=== PATIENT | male | born 1970 | race Caucasian/White ===

== ENCOUNTER 2024-05-12 15:15 | Outpatient (CLI) | payer MEDICARE, SELFPAY | END 2024-05-12 15:16 | disposition home or self-care (01) | PROVIDERS: Visit Provider Family Medicine | DX: I10 Essential (primary) hypertension (principal); N40.1 Benign prostatic hyperplasia with lower urinary tract symptoms; R35.1 Nocturia; Z12.5 Encounter for screening for malignant neoplasm of prostate | CPT/HCPCS: 80053; G0103 ==

== ENCOUNTER 2024-07-01 13:39 | Outpatient (CLI) | payer MEDICARE, SELFPAY | END 2024-07-01 13:40 | disposition home or self-care (01) | LOC: LKVREF 13:40 | PROVIDERS: PCP Family Medicine; Visit Provider Emergency Medicine | DX: M25.561 Pain in right knee (principal); M25.562 Pain in left knee; Z87.39 Personal history of other diseases of the musculoskeletal system and connective tissue | CPT/HCPCS: 80048 ==

== ENCOUNTER 2024-07-17 12:33 | Outpatient (CLI) | payer MEDICARE, SELFPAY ==
[2024-07-17 17:39] LABS: Mononuclear WBC Body Fluid* 96 %; Polynuclear WBC Body Fluid* 4 %; RBC, Body Fluid* 2000 Cells/uL; WBC, Body Fluid* 438 Cells/uL
[2024-07-17 17:40] LABS: BF Color Xanthochromic; BF Total Volume* 5
[2024-07-17 17:41] LABS: BF Clarity* Clear
== END 2024-07-17 12:34 | disposition home or self-care (01) ==
PROVIDERS: Physician Assistant Surgical; PCP Family Medicine; Visit Provider Family Medicine
DX: M25.562 Pain in left knee (principal); M10.9 Gout, unspecified; Z87.39 Personal history of other diseases of the musculoskeletal system and connective tissue
CPT/HCPCS: 84550; 87070; 87075; 87205; 89051; 89060

== ENCOUNTER 2024-07-21 18:22 | Outpatient (CLI) | payer MEDICARE, SELFPAY | END 2024-07-21 18:23 | disposition home or self-care (01) | LOC: LKVREF 18:24 | PROVIDERS: PCP Family Medicine; Visit Provider Family Medicine | DX: I10 Essential (primary) hypertension (principal) | CPT/HCPCS: 82043; 82570 ==